=== PATIENT | female | born 1970 | race Caucasian/White ===

== ENCOUNTER 2017-02-08 17:00 | Inpatient (IN) | payer SELFPAY ==
[~2017-02-08] VITALS: Ht 162.6 cm; Wt 58.8 kg
[2017-02-08] MEDS ORDERED: SODIUM CHLORIDE 0.9% 1,000 ML IV ONE ×2 (17:09→19:38)
[2017-02-08] MEDS ORDERED: ACETAMINOPHEN 500 MG TABLET ONE (17:25)
[2017-02-08] MEDS ORDERED: ONDANSETRON 2MG/ML, 2ML ONE (17:25)
[2017-02-08] MEDS ORDERED: SODIUM CHLORIDE 0.9% 1,000ML IVBOLUS ONE (17:30)
[2017-02-08] MEDS ORDERED: ONDANSETRON 2MG/ML, 2ML IVPush ONE (17:30)
[2017-02-08] MEDS ORDERED: ACETAMINOPHEN 500 MG TABLET PO ONE (17:30)
[2017-02-08 17:47] LABS: BLOOD UREA NITROGEN 16 mg/dL (7-18)
[2017-02-08] MEDS ORDERED: POTASSIUM CHLORIDE 20 MEQ TAB.ER.PRT PO ONE (18:00)
[2017-02-08] MEDS ORDERED: AZITHROMYCIN 500 MG in SODIUM CHLORIDE 0.9% 250 ML IV ONE (18:00)
[2017-02-08] MEDS ORDERED: CEFTRIAXONE PMX 1GM/50ML 50 ML IVPB ONE (18:00)
[2017-02-08 18:03] LABS: DIFF TOTAL CELLS COUNTED 100 CELL DIFF
[2017-02-08 18:05] LABS: VERIFY COUNTS? YES
[2017-02-08] MEDS ORDERED: POTASSIUM CHLORIDE 20 MEQ TAB.ER.PRT ONE (18:24)
[2017-02-08] MEDS ORDERED: CEFTRIAXONE PMX 1GM/50ML 50 ML ONE (18:24)
[2017-02-08] MEDS ORDERED: DOCUSATE 100 MG CAPSULE PO PRN (19:30)
[2017-02-08] MEDS ORDERED: LORazepam 2 MG/ML, 1ML IVPush PRN (19:30)
[2017-02-08] MEDS ORDERED: ONDANSETRON 2MG/ML, 2ML IVPush PRN (19:30)
[2017-02-08] MEDS ORDERED: SODIUM CHLORIDE FLUSH 10ML SYR IVF PRN (20:00)
[2017-02-08] MEDS ORDERED: BENZOCAINE/MENTHOL CAN TP PRN (20:30)
[2017-02-08] MEDS: NICOTINE 14MG/24 HR PATCH.TD24 TD SCH (21:00)
[2017-02-08 21:30] VITALS: BP 106/77
[2017-02-08 21:31] VITALS: BP 106/77
[2017-02-08] MEDS: FAMOTIDINE 20 MG TABLET PO SCH (22:12)
[2017-02-08] MEDS: TEMAZEPAM 15 MG CAPSULE PO PRN (22:12)
[2017-02-08] MEDS: GUAIFENESIN/DM 200-20MG, 10ML UDC PO PRN (22:12)
[2017-02-08] MEDS: NS + 20MEQ KCL 1,000 ML IV SCH (22:12)
[2017-02-08] MEDS: HEPARIN 5,000 UNITS/ML, 1ML SQ SCH (22:13)
[2017-02-09] MEDS: ACETAMINOPHEN 325 MG TABLET PO PRN ×2 (00:57→08:01)
[2017-02-09 01:31] VITALS: BP 109/69
[2017-02-09] MEDS: HEPARIN 5,000 UNITS/ML, 1ML SQ SCH ×3 (04:57→21:28)
[2017-02-09 05:49] LABS: ASPARTATE AMINO TRANSFERASE 48 U/L (15-37); BLOOD UREA NITROGEN 10 mg/dL (7-18)
[2017-02-09 06:02] LABS: DIFF TOTAL CELLS COUNTED 100 CELL DIFF
[2017-02-09 06:06] LABS: POLYCHROMASIA 1+; VERIFY COUNTS? YES
[2017-02-09 06:08] LABS: GIANT PLATELETS 1+; LARGE PLATELETS 1+
[2017-02-09] MEDS: GUAIFENESIN/DM 200-20MG, 10ML UDC PO PRN ×2 (06:14→21:28)
[2017-02-09 07:42] VITALS: BP 99/68
[2017-02-09] MEDS ORDERED: POTASSIUM CHLORIDE 20 MEQ TAB.ER.PRT PO SCH (08:00)
[2017-02-09] MEDS: MAGNESIUM OXIDE 400 MG TABLET PO SCH (08:01)
[2017-02-09] MEDS: FAMOTIDINE 20 MG TABLET PO SCH ×2 (08:01→21:28)
[2017-02-09] MEDS: THIAMINE 100MG TABLET PO SCH (08:02)
[2017-02-09] MEDS: NS + 20MEQ KCL 1,000 ML IV SCH ×2 (08:02→16:58)
[2017-02-09] MEDS: LORazepam 1MG TABLET PO PRN ×2 (08:11→21:28)
[2017-02-09] MEDS ORDERED: POTASSIUM CHLORIDE 20 MEQ TAB.ER.PRT PO ONE ×3 (10:00→13:00)
[2017-02-09] MEDS: FLUTICASONE/VILANTEROL 100-25MCG/INH INH SCH (11:02)
[2017-02-09] MEDS: DOXYCYCLINE 100MG TABLET PO SCH ×2 (11:02→21:28)
[2017-02-09 12:54] LABS: DAU SCREEN DISCLAIMER
[2017-02-09] MEDS: POTASSIUM CHLORIDE 20 MEQ, MAGNESIUM SULFATE 1 GM, THIAMINE 100 MG, FOLIC ACID 1 MG, MV... IV SCH (13:45)
[2017-02-09 14:12] LABS: RAPID INFLUENZA A Negative (Negative); RAPID INFLUENZA B Negative (Negative)
[2017-02-09 14:25] VITALS: BP 92/60
[2017-02-09 15:38] LABS: BLOOD UREA NITROGEN 8 mg/dL (7-18)
[2017-02-09] MEDS ORDERED: AZITHROMYCIN 500 MG in SODIUM CHLORIDE 0.9% 250 ML IV SCH (19:30)
[2017-02-09] MEDS: NICOTINE 14MG/24 HR PATCH.TD24 TD SCH (19:46)
[2017-02-09 20:00] VITALS: BP 112/75
[2017-02-09] MEDS: CEFTRIAXONE PMX 2GM/50ML 50 ML IV SCH (21:28)
[2017-02-10 02:00] VITALS: BP 105/73
[2017-02-10] MEDS: NS + 20MEQ KCL 1,000 ML IV SCH ×2 (03:17→19:34)
[2017-02-10] MEDS: HEPARIN 5,000 UNITS/ML, 1ML SQ SCH ×3 (04:47→21:03)
[2017-02-10 06:05] LABS: BLOOD UREA NITROGEN 5 mg/dL (7-18)
[2017-02-10 06:08] LABS: ASPARTATE AMINO TRANSFERASE 29 U/L (15-37)
[2017-02-10 07:30] VITALS: BP 112/80
[2017-02-10] MEDS: FLUTICASONE/VILANTEROL 100-25MCG/INH INH SCH (09:33)
[2017-02-10] MEDS: THIAMINE 100MG TABLET PO SCH (09:35)
[2017-02-10] MEDS: MAGNESIUM OXIDE 400 MG TABLET PO SCH (09:35)
[2017-02-10] MEDS: FAMOTIDINE 20 MG TABLET PO SCH ×2 (09:35→21:02)
[2017-02-10] MEDS: DOXYCYCLINE 100MG TABLET PO SCH ×2 (09:35→21:02)
[2017-02-10] MEDS: POTASSIUM CHLORIDE 20 MEQ, MAGNESIUM SULFATE 1 GM, THIAMINE 100 MG, FOLIC ACID 1 MG, MV... IV SCH (11:21)
[2017-02-10] MEDS: ALBUTEROL/IPRATROPIUM 2.5MG/0.5MG, 3 ML NPPB PRN ×2 (11:30→21:05)
[2017-02-10] MEDS ORDERED: ALBUTEROL/IPRATROPIUM 2.5MG/0.5MG, 3 ML ONE (11:43)
[2017-02-10 12:50] VITALS: BP 93/59
[2017-02-10] MEDS ORDERED: HEMORRHOIDAL OINT, 28 GM (PREP H) RC PRN (16:00)
[2017-02-10 18:58] VITALS: BP 94/60
[2017-02-10] MEDS: GUAIFENESIN/DM 200-20MG, 10ML UDC PO PRN (19:21)
[2017-02-10] MEDS: CEFTRIAXONE PMX 2GM/50ML 50 ML IV SCH (19:34)
[2017-02-10] MEDS: NICOTINE 14MG/24 HR PATCH.TD24 TD SCH (21:00)
[2017-02-10] MEDS: LORazepam 1MG TABLET PO PRN (21:02)
[2017-02-11 00:48] VITALS: BP 97/63
[2017-02-11] MEDS: ALBUTEROL/IPRATROPIUM 2.5MG/0.5MG, 3 ML NPPB PRN ×2 (02:37→17:29)
[2017-02-11 05:42] LABS: BLOOD UREA NITROGEN 5 mg/dL (7-18)
[2017-02-11] MEDS: HEPARIN 5,000 UNITS/ML, 1ML SQ SCH ×3 (06:18→21:32)
[2017-02-11] MEDS: NS + 20MEQ KCL 1,000 ML IV SCH (06:18)
[2017-02-11 07:30] VITALS: BP 102/70
[2017-02-11] MEDS: FLUTICASONE/VILANTEROL 100-25MCG/INH INH SCH (09:05)
[2017-02-11] MEDS: FAMOTIDINE 20 MG TABLET PO SCH ×2 (09:05→21:30)
[2017-02-11] MEDS: THIAMINE 100MG TABLET PO SCH (09:05)
[2017-02-11] MEDS: MAGNESIUM OXIDE 400 MG TABLET PO SCH (09:05)
[2017-02-11] MEDS: DOXYCYCLINE 100MG TABLET PO SCH ×2 (09:05→21:30)
[2017-02-11] MEDS: POTASSIUM CHLORIDE 20 MEQ, MAGNESIUM SULFATE 1 GM, THIAMINE 100 MG, FOLIC ACID 1 MG, MV... IV SCH (12:15)
[2017-02-11 12:55] VITALS: BP 102/66
[2017-02-11] MEDS: LORazepam 1MG TABLET PO PRN (17:56)
[2017-02-11] MEDS: GUAIFENESIN/DM 200-20MG, 10ML UDC PO PRN (18:30)
[2017-02-11 19:20] VITALS: BP 112/67
[2017-02-11] MEDS: CEFTRIAXONE PMX 2GM/50ML 50 ML IV SCH (19:43)
[2017-02-11] MEDS: TEMAZEPAM 15 MG CAPSULE PO PRN (21:31)
[2017-02-11] MEDS: NICOTINE 14MG/24 HR PATCH.TD24 TD SCH (21:32)
[2017-02-12 01:58] VITALS: BP 93/61
[2017-02-12] MEDS: HEPARIN 5,000 UNITS/ML, 1ML SQ SCH ×3 (05:30→21:01)
[2017-02-12 05:59] LABS: BLOOD UREA NITROGEN 4 mg/dL (7-18)
[2017-02-12 07:04] VITALS: BP 98/63
[2017-02-12] MEDS: DOXYCYCLINE 100MG TABLET PO SCH ×2 (08:42→20:56)
[2017-02-12] MEDS: THIAMINE 100MG TABLET PO SCH (08:42)
[2017-02-12] MEDS: FAMOTIDINE 20 MG TABLET PO SCH ×2 (08:42→20:56)
[2017-02-12] MEDS: FLUTICASONE/VILANTEROL 100-25MCG/INH INH SCH (08:42)
[2017-02-12] MEDS: MAGNESIUM OXIDE 400 MG TABLET PO SCH (08:42)
[2017-02-12] MEDS ORDERED: THIAMINE 100MG TABLET PO SCH (09:00)
[2017-02-12] MEDS ORDERED: FOLIC ACID 1 MG TABLET PO SCH (09:00)
[2017-02-12 12:20] VITALS: BP 106/78
[2017-02-12 19:50] VITALS: BP 93/51
[2017-02-12] MEDS: CEFTRIAXONE PMX 2GM/50ML 50 ML IV SCH (19:50)
[2017-02-12] MEDS: NICOTINE 14MG/24 HR PATCH.TD24 TD SCH (21:00)
== END 2017-02-13 04:00 | disposition home or self-care (01) | DRG 871 ==
LOC: ED 17:41 → 3NW 18:47 → UNDOFXERSVC 18:58 → EDIP 18:58 → UNDOFXERACCOM 18:58 → UNDOADMIN 19:38 → EDIP 19:38 → 4EST 21:12 → EDIP 21:12 → 4EST 02-11 21:46 → UNDODISIN 02-13 04:00
PROVIDERS: ADMIT Internal Medicine; ATTEND Internal Medicine
DX: A41.9 Sepsis, unspecified organism (principal); J18.9 Pneumonia, unspecified organism; E43 Unspecified severe protein-calorie malnutrition; E87.1 Hypo-osmolality and hyponatremia; F10.239 Alcohol dependence with withdrawal, unspecified; F17.213 Nicotine dependence, cigarettes, with withdrawal; E87.6 Hypokalemia; F15.90 Other stimulant use, unspecified, uncomplicated; B19.20 Unspecified viral hepatitis C without hepatic coma; Z66 Do not resuscitate; F32.9 Major depressive disorder, single episode, unspecified; F10.229 Alcohol dependence with intoxication, unspecified; Y90.0 Blood alcohol level of less than 20 mg/100 ml; R73.9 Hyperglycemia, unspecified; Z88.6 Allergy status to analgesic agent; Z91.011 Allergy to milk products; Z91.030 Bee allergy status; Z71.6 Tobacco abuse counseling; Z68.22 Body mass index [BMI] 22.0-22.9, adult
CPT/HCPCS: 36415; 71020; 80048; 80053; 80307; 82040; 83605; 83735; 84100; 84145; 85025; 85610; 85730; 87040; 87070; 87081; 87205; 87324; 87400; 87880; 94640; 96361; 96365; 96367; 96375; J0456; J0696; J1644; J2405; J3411; J3475; J3480; J7620; G0378; J2060; J7030; J7050